=== PATIENT | male | born 1985 | race Hispanic/Latino ===

== ENCOUNTER 2019-07-19 20:58 | Emergency (ER) | payer SELFPAY ==
--- NOTE | 2019-07-19 21:30 | RAD ---
PORTABLE CHEST: 07/19/19 HISTORY: High blood pressure. Palpitations. Lung chapman are clear. Heart and mediastinum appear normal. Vasculature normal. IMPRESSION: Negative portable chest. POS: [facility]
[2019-07-19 21:34] LABS: #Basophils 0.1 thou/uL (0.0-0.2); #Eosinphils 0.1 thou/uL (0.0-0.7); #Lymphocytes 2.1 thou/uL (1.20-3.40); #Monocytes 0.5 thou/uL (0.11-0.59); %Basophils 1.9 % (0.0-1.0); %Eosinophils 0.9 % (0.0-10.0); %Lymphocytes 31.2 % (21.0-51.0); %Monocytes 7.4 % (0.0-10.0); %Neutrophils 58.7 % (42.0-75.0); Mean Corpuscular HGB CONC 35.7 g/dL (32.0-36.0); Mean Corpuscular Hemoglobin 33.3 pg (27.0-31.0); Mean Corpuscular Volume 93.3 fL (78.0-98.0); Mean Platelet Volume 7.1 fL (7.4-10.4); Platelet Count 321 thou/uL (130-400); RBC Distribution Width 11.1 % (11.5-14.5); Red Blood Cell (RBC) Count 5.11 mill/uL (4.70-6.10); White Blood Cell (WBC) Count 6.9 thou/uL (4.8-10.8)
[2019-07-19 21:57] LABS: ALT (SGPT) 44 U/L (8-55); AST (SGOT) 48 U/L (5-34); Albumin 4.4 g/dL (3.5-5.0); Alkaline Phosphatase 77 U/L (40-110); Anion Gap 18 mmol/L (10-20); BUN (Urea Nitrogen) 11 mg/dL (8.9-20.6); Bilirubin, Total 0.4 mg/dL (0.2-1.2); CK (CPK) 85 U/L (30-200); Calc. Creatinine Clearance 0 mL/min (70-130); Calcium 9.3 mg/dL (7.8-10.44); Carbon Dioxide 22 mmol/L (22-29); Chloride 103 mmol/L (98-107); Estimated GFR-MDRD Greater than 90; Globulin 3.6 g/dL (2.4-3.5); Glucose 143 mg/dL (70-105); Potassium 3.6 mmol/L (3.5-5.1); Sodium 139 mmol/L (136-145)
--- NOTE | 2019-07-19 22:23 | CT ---
CT HEAD WITHOUT CONTRAST: 07/19/19 INDICATION: Numbness right face. FINDINGS: Ventricles have normal size and position. No mass or hemorrhage. No evidence of infarct or edema. IMPRESSION: No acute findings. POS: [facility]
[2019-07-19] MEDS ORDERED: Aspirin 325 MG TAB ONE (22:29)
[2019-07-19 23:08] LABS: Medtox Reader # READER 4
[2019-07-19 23:09] LABS: Amphetamine Not Detected (NotDetected); Barbiturates Screen Not Detected (NotDetected); Benzodiazepine Screen Not Detected (NotDetected); Cocaine Metabolite Screen Detected (NotDetected); Medtox Control Line Valid? VALID (VALID); Methadone Not Detected (NotDetected); Methamphetamine Not Detected (NotDetected); Opiate Screen Not Detected (NotDetected); Oxycodone Screen Not Detected (NotDetected); Phencyclidine (PCP) Not Detected (NotDetected); THC/Cannabinoid Screen Not Detected (NotDetected); Tricyclic Screen Not Detected (NotDetected)
== END 2019-07-19 23:13 | disposition home or self-care (01) ==
LOC: ERS 20:58
DX: R00.2 Palpitations (principal); R20.2 Paresthesia of skin; Z87.01 Personal history of pneumonia (recurrent)
CPT/HCPCS: 70450; 71045; 80053; 80306; 82550; 84484; 85025; 93005; 96360

== ENCOUNTER 2020-06-30 21:29 | Inpatient (IN) | payer SELFPAY ==
[2020-06-30] MEDS ORDERED: Lorazepam 2 MG/ML VIAL ONE (23:26)
[2020-06-30] MEDS ORDERED: Diazepam 5 MG TAB ONE (23:57)
[2020-06-30] MEDS ORDERED: Ondansetron PF 4 MG/2 ML Vial ONE (23:59)
[2020-06-30] MEDS ORDERED: Multivitamins, Adult 10 ML, Thiamine HCl 100 MG, Folic Acid 1 MG in Dextrose 5 %-0.45 %... IV SCH (23:59)
[2020-07-01 02:19] LABS: ALT (SGPT) 151 U/L (8-55); AST (SGOT) 164 U/L (5-34); Albumin 3.8 g/dL (3.5-5.0); Alkaline Phosphatase 69 U/L (40-110); Anion Gap 16 mmol/L (10-20); BUN (Urea Nitrogen) 5 mg/dL (8.9-20.6); Bilirubin, Total 0.5 mg/dL (0.2-1.2); Calc. Creatinine Clearance 0 mL/min (70-130); Calcium 8.1 mg/dL (7.8-10.44); Carbon Dioxide 21 mmol/L (22-29); Chloride 103 mmol/L (98-107); Globulin 3.1 g/dL (2.4-3.5); Glucose 138 mg/dL (70-105); Lipase 308 U/L (8-78); Potassium 3.4 mmol/L (3.5-5.1); Protein, Total 6.9 g/dL (6.0-8.3); Sodium 137 mmol/L (136-145)
[2020-07-01 02:25] LABS: #Basophils 0.1 thou/uL (0.0-0.2); #Lymphocytes 0.8 thou/uL (1.20-3.40); #Monocytes 0.4 thou/uL (0.11-0.59); #Neutrophils 2.9 thou/uL (1.40-6.50); %Basophils 2.8 % (0.0-1.0); %Eosinophils 1.1 % (0.0-10.0); %Lymphocytes 19.4 % (21.0-51.0); %Monocytes 9.2 % (0.0-10.0); %Neutrophils 67.5 % (42.0-75.0); Hemoglobin 12.6 g/dL (14.0-18.0); Mean Corpuscular Hemoglobin 34.9 pg (27.0-31.0); Mean Corpuscular Volume 96.9 fL (78.0-98.0); Mean Platelet Volume 7.6 fL (7.4-10.4); Platelet Count 141 thou/uL (130-400); RBC Distribution Width 10.7 % (11.5-14.5); White Blood Cell (WBC) Count 4.3 thou/uL (4.8-10.8)
[2020-07-01 03:27] LABS: Bacteria/HPF None Seen HPF (None Seen); Bilirubin Negative (Negative); Blood, Urine 2+ (Negative); Clarity Clear (Clear); Glucose, Urine (Dipstick) Normal (Negative); Ketone, Urine Negative (Negative); Leukocyte Negative Leu/uL (Negative); Nitrite Negative (Negative); Protein, Urine (Dipstick) Negative (Neg-Trace); RBC/HPF 0-3 HPF (0-3); Specific Gravity, Urine 1.013 (1.002-1.036); Squamous Epithelial None Seen HPF (0-3); Urobilinogen Normal mg/dL (Less than 2); WBC/HPF 0-3 HPF (0-3); pH, Urine 5.5 (5.0-9.0)
[2020-07-01 03:37] LABS: Amphetamine Not Detected (NotDetected); Benzodiazepine Screen Detected (NotDetected); Cocaine Metabolite Screen Not Detected (NotDetected); Medtox Reader # READER 1; Methamphetamine Not Detected (NotDetected); Opiate Screen Not Detected (NotDetected); Phencyclidine (PCP) Not Detected (NotDetected); THC/Cannabinoid Screen Not Detected (NotDetected); Tricyclic Screen Not Detected (NotDetected)
[2020-07-01 03:38] LABS: Barbiturates Screen Not Detected (NotDetected); Medtox Control Line Valid? VALID (VALID); Methadone Not Detected (NotDetected); Oxycodone Screen Not Detected (NotDetected)
[2020-07-01 04:47] LABS: Lactic Acid 1.2 mmol/L (0.5-2.2)
[2020-07-01 06:14] VITALS: BMI 28.3
[2020-07-01] MEDS ORDERED: Diazepam 5 MG TAB PO PRN (06:52)
[2020-07-01] MEDS ORDERED: Thiamine HCl 200 MG/2 ML VIAL IM SCH (07:00)
[2020-07-01] MEDS: Diazepam 5 MG TAB PO SCH ×2 (07:10→07:20)
[2020-07-01] MEDS ORDERED: Potassium Chloride 20 MEQ TAB PO SCH (07:15)
[2020-07-01 07:27] LABS: #Basophils 0.1 thou/uL (0.0-0.2); #Eosinphils 0.1 thou/uL (0.0-0.7); #Lymphocytes 1.2 thou/uL (1.20-3.40); #Monocytes 0.5 thou/uL (0.11-0.59); #Neutrophils 3.5 thou/uL (1.40-6.50); %Basophils 1.9 % (0.0-1.0); %Eosinophils 1.8 % (0.0-10.0); %Monocytes 9.2 % (0.0-10.0); Hemoglobin 13.1 g/dL (14.0-18.0); Mean Corpuscular HGB CONC 35.2 g/dL (32.0-36.0); Mean Corpuscular Hemoglobin 34.1 pg (27.0-31.0); Mean Corpuscular Volume 96.7 fL (78.0-98.0); Mean Platelet Volume 7.4 fL (7.4-10.4); Platelet Count 150 thou/uL (130-400); RBC Distribution Width 10.7 % (11.5-14.5); Red Blood Cell (RBC) Count 3.86 mill/uL (4.70-6.10); White Blood Cell (WBC) Count 5.5 thou/uL (4.8-10.8)
[2020-07-01 07:43] LABS: ALT (SGPT) 144 U/L (8-55); AST (SGOT) 126 U/L (5-34); Alkaline Phosphatase 65 U/L (40-110); Anion Gap 12 mmol/L (10-20); BUN (Urea Nitrogen) 4 mg/dL (8.9-20.6); Bilirubin, Direct 0.4 mg/dL (0.1-0.3); Bilirubin, Total 0.8 mg/dL (0.2-1.2); Calc. Creatinine Clearance 155 mL/min (70-130); Calcium 8.8 mg/dL (7.8-10.44); Carbon Dioxide 26 mmol/L (22-29); Chloride 103 mmol/L (98-107); Globulin 3.3 g/dL (2.4-3.5); Glucose 73 mg/dL (70-105); Potassium 3.2 mmol/L (3.5-5.1); Protein, Total 7.3 g/dL (6.0-8.3); Sodium 138 mmol/L (136-145)
[2020-07-01] MEDS ORDERED: cloNIDine 0.1 MG TAB PO PRN (07:59)
[2020-07-01 08:01] LABS: Syphilis Antibody Nonreactive (Nonreactive); Syphilis Antibody Index 0.03 S/CO (<1.00 Non-Reactive)
[2020-07-01] MEDS ORDERED: Calcium Carbonate 500 MG ChewTAB PO PRN (08:01)
[2020-07-01] MEDS ORDERED: Senokot S 8.6-50 MG TAB PO PRN ×2 (08:01→08:03)
[2020-07-01] MEDS ORDERED: Ondansetron ODT 4 MG TAB PO PRN (08:01)
[2020-07-01] MEDS ORDERED: Lorazepam 1 MG TAB PO PRN (08:01)
[2020-07-01] MEDS ORDERED: Ondansetron PF 4 MG/2 ML Vial IVP PRN (08:01)
[2020-07-01] MEDS ORDERED: Sodium Chloride 0.9% (PF) 10 ML VIAL FS PRN (08:15)
--- NOTE | 2020-07-01 08:25 | RAD ---
EXAM: CHEST ONE VIEW HISTORY: [facility] protocol COMPARISON: 07/19/2019 FINDINGS: The cardiac silhouette and pulmonary vasculature are within normal limits. The lungs are clear. Chest is stable compared to prior exam. IMPRESSION: No acute cardiopulmonary process.
[2020-07-01 08:59] LABS: Magnesium 1.5 mg/dL (1.6-2.6); Phosphorus 3.4 mg/dL (2.3-4.7)
[2020-07-01] MEDS ORDERED: Metoprolol Tartrate 25 MG TAB PO SCH (09:00)
[2020-07-01] MEDS ORDERED: Famotidine 20 MG TAB PO SCH (09:00)
[2020-07-01] MEDS ORDERED: cloNIDine 0.1 MG TAB PO SCH (09:00)
[2020-07-01] MEDS ORDERED: Folic Acid 1 MG TAB PO SCH (09:00)
[2020-07-01] MEDS ORDERED: Famotidine/PF 20 mg/2ml Vial SLOW IVP SCH (09:00)
[2020-07-01] MEDS ORDERED: FLU VACC QS2020-21(6MOS UP)/PF 60 MCG/0.5 ML SYRINGE IM ONE (09:00)
[2020-07-01] MEDS ORDERED: Magnesium Sulfate 2 GM in Sodium Chloride 0.9% 100 ML IVPB SCH (09:15)
[2020-07-01] MEDS: Folic Acid 1 MG TAB PO SCH (09:26)
[2020-07-01] MEDS: D5 1/2 NS w/20 mEq KCL 1,000 ML IV SCH ×3 (09:26→19:51)
[2020-07-01] MEDS: Multivitamin W/ Minerals 1 TAB PO SCH (09:27)
[2020-07-01] MEDS: Heparin 5,000 UNITS/ML VIAL SC SCH ×3 (09:27→19:51)
[2020-07-01] MEDS: Pantoprazole 40 MG VIAL IVP SCH ×2 (09:28→19:52)
[2020-07-01] MEDS ORDERED: Magnesium 2 GM/50 ML 2 GM in Premix Bag 1 BAG IVPB SCH (09:45)
--- NOTE | 2020-07-01 11:35 | HP ---
PCP: None. CHIEF COMPLAINT: Altered mental status, hallucinating, abdominal pain. HISTORY OF PRESENT ILLNESS: Mr. Parkinson is a 35-year-old man, who was brought to the emergency room overnight for anxiety, hallucinations, mental status changes, tremors. He reports that he drinks at least two Tall Boy beers every night and then more on the weekends and he has done that since he was about 15. He reports that the last alcohol was either yesterday or the day before yesterday. He reports he has recently started a new job. He reports that he has blacked out over the past week, he feels very anxious. He reports that he has been recently from his , which has increased his drinking and has made his anxiety worse. When he was initially evaluated in the emergency room, he was tachycardic, pulse was 116. Blood pressure, temperature, PO2 sats were within normal ranges. His lab work in the emergency room showed a white blood cell count of 4.3, hemoglobin 12.6, hematocrit 34.8, and platelet count 141. Chemistry; sodium 137, potassium 3.4, chloride 103, carbon dioxide 21, BUN 5, creatinine 0.68, estimated GFR is greater than 90, glucose is 138, calcium is 8.1, bilirubin 0.5, AST is 164, ALT 151, alkaline phosphatase 69. His lipase was 308. Urine had a little trace blood. Toxicology positive for benzos. Syphilis was nonreactive. He was given fluids in the emergency room and some Zofran, a banana bag, Valium, Ativan, and then admitted for DTs and pancreatitis. On exam this morning, he is tremulous, but calm, reports that he feels a little bit anxious, but overall feels a little bit better. He is most anxious to go home by tomorrow as he started a new job and mohr not want to lose it. He is agreeable to be n.p.o. today with IV fluids and then potentially to start clear liquids tomorrow. REVIEW OF SYSTEMS: The patient reports intermittent abdominal pain, epigastric, but denies current pain. He reports blacking out a couple of times over this past week. Reports he has abused alcohol for the last 20 years. He denies any drug use. He reports that he is nauseated, but does not feel like vomiting. All other systems reviewed and are negative unless mentioned in the HPI or above. PAST MEDICAL HISTORY: COPD, hypertension. SURGICAL HISTORY: He has had hand surgery to his left hand, knee surgery, back surgery. PSYCHIATRIC HISTORY: Anxiety. SOCIAL HISTORY: He drinks everyday. He denies drug use. He has no smoking history. ALLERGIES: NONE. CURRENT HOME MEDICATIONS: None. PHYSICAL EXAMINATION: VITAL SIGNS: Temperature is 98.5, pulse is 105, respiratory rate is 20, PO2 sats are 99% on room air. CONSTITUTIONAL: The patient is alert, awake, and oriented. He is a little tremulous. Appears nontoxic. HEENT: Head is atraumatic and normocephalic. Eyes, pupils are equally round and reactive to light. Conjunctivae are normal. ENT; mouth exam is normal. Mucous membranes are moist. NECK: Normal range of motion. Trachea is midline. RESPIRATORY/CHEST: Breath sounds are clear. Chest expansion is equal. CARDIOVASCULAR: He is tachycardic. Heart sounds are normal S1 and S2. No murmurs. ABDOMEN: Nontender. Bowel sounds are heard. BACK: Normal range of motion. No tenderness. EXTREMITIES: Upper extremities; normal range of motion, radial pulses are normal. Lower extremities; normal range of motion, pedal pulses are normal. NEUROLOGIC: He is oriented to person, place, and time. He is tremulous. SKIN: Warm, dry, and normal in color. DIAGNOSTIC STUDIES: EKG in the emergency room shows normal conduction, tachycardic, otherwise normal EKG. PLAN AND ASSESSMENT: 1. Alcoholic pancreatitis, related to daily alcohol use. The patient will be kept n.p.o. We will add D5 half-normal with 20 of K as his potassium was a little low today. We will add some mag sulfate IV piggyback. His magnesium was 1.5. Added Protonix q.12 hours. 2. Alcohol use/abuse, withdrawals. Keep him on the protocol. We changed up his benzodiazepine to lorazepam 1 mg p.o. q.4 hours p.r.n. Also added some clonidine and beta fili to help with the tremors. Added thiamine and folic acid. Alcohol counseling cessation was given to the patient. 3. History of hypertension, but he does not remember which medications, so we will keep him on the clonidine p.r.n. for now and can adjust as needed. 4. We will recheck his lab values in the morning. 5. Most likely, start a clear liquid diet tomorrow, see how he tolerates. 6. Heparin for DVT prevention. Protonix for PUD prevention. 7. Discussed with Dr. Braun. 8. Hospital course dependent on clinical findings. Job ID: [id number]
[2020-07-01 12:26] LABS: SARS-CoV-2 PCR by NAA Not Detected (NotDetected)
[2020-07-02] MEDS: D5 1/2 NS w/20 mEq KCL 1,000 ML IV SCH ×3 (03:08→18:02)
[2020-07-02] MEDS ORDERED: Diazepam 5 MG TAB PO PRN (04:00)
[2020-07-02 06:21] LABS: #Basophils 0.1 thou/uL (0.0-0.2); #Eosinphils 0.1 thou/uL (0.0-0.7); #Lymphocytes 0.7 thou/uL (1.20-3.40); #Monocytes 0.5 thou/uL (0.11-0.59); #Neutrophils 3.2 thou/uL (1.40-6.50); %Basophils 1.8 % (0.0-1.0); %Eosinophils 2.5 % (0.0-10.0); %Lymphocytes 15.9 % (21.0-51.0); %Monocytes 10.2 % (0.0-10.0); %Neutrophils 69.6 % (42.0-75.0); Hemoglobin 14.2 g/dL (14.0-18.0); Mean Corpuscular HGB CONC 35.4 g/dL (32.0-36.0); Mean Corpuscular Hemoglobin 34.3 pg (27.0-31.0); Mean Corpuscular Volume 97.1 fL (78.0-98.0); Mean Platelet Volume 7.8 fL (7.4-10.4); Platelet Count 155 thou/uL (130-400); RBC Distribution Width 10.6 % (11.5-14.5); Red Blood Cell (RBC) Count 4.13 mill/uL (4.70-6.10); White Blood Cell (WBC) Count 4.6 thou/uL (4.8-10.8)
[2020-07-02 06:51] LABS: ALT (SGPT) 104 U/L (8-55); AST (SGOT) 68 U/L (5-34); Alkaline Phosphatase 61 U/L (40-110); Anion Gap 16 mmol/L (10-20); BUN (Urea Nitrogen) 4 mg/dL (8.9-20.6); Bilirubin, Total 0.9 mg/dL (0.2-1.2); Calc. Creatinine Clearance 153 mL/min (70-130); Calcium 9.1 mg/dL (7.8-10.44); Carbon Dioxide 22 mmol/L (22-29); Chloride 104 mmol/L (98-107); Globulin 3.5 g/dL (2.4-3.5); Glucose 121 mg/dL (70-105); Lipase 410 U/L (8-78); Magnesium 2.1 mg/dL (1.6-2.6); Phosphorus 3.4 mg/dL (2.3-4.7); Potassium 3.9 mmol/L (3.5-5.1); Protein, Total 7.5 g/dL (6.0-8.3); Sodium 138 mmol/L (136-145)
[2020-07-02] MEDS: Heparin 5,000 UNITS/ML VIAL SC SCH ×2 (08:43→14:27)
[2020-07-02] MEDS: Multivitamin W/ Minerals 1 TAB PO SCH (08:44)
[2020-07-02] MEDS: Folic Acid 1 MG TAB PO SCH (08:44)
[2020-07-02] MEDS: Pantoprazole 40 MG VIAL IVP SCH (08:44)
[2020-07-02] MEDS ORDERED: Magnesium Oxide 400 MG TAB PO SCH (09:00)
[2020-07-02] MEDS ORDERED: Thiamine 100 MG TAB PO SCH (09:00)
[2020-07-02 17:14] VITALS: TEMP 98.1
[2020-07-02 18:46] VITALS: BP 117/86
--- NOTE | 2020-07-02 20:31 | PDOC.DS.DS ---
Provider Date of Admission: 07/01/20 03:32 Date of Discharge: 07/02/20 Admitting Provider: Bob Malone MD Primary Care Physician: NO PCP PROVIDER Course Hospital Course: This is a 35-year-old male patient who is known to be an alcoholic presented to the ER complaining of abdominal pain, he also reported anxiety and blacking out couple times, his blood work in the ER showed elevated lipase. He was admitted with a diagnosis of alcoholic pancreatitis, he was started on magnesium, thiamine and folic acid. Over the past 24 hours he did very well and today when I saw him (translation services used) he reported that he does not have any abdominal pain that he is very hungry and wants to eat, although his lipase did increase today compared to yesterday clinically he was doing much better. I started him on a regular diet and he did very well, he requested to leave because he has a new job and he wanted to go back to his job. Since he did tolerate his diet, I did provide him with thiamine and magnesium and multivitamin. I advised him against alcohol consumption. He verbalized understanding and agreement. Resuscitation Status: 07/01/20 08:01 Resuscitation Status Routine Resuscitation Status: FULL: Full Resuscitation Lab Results: 07/02/20 06:02 07/02/20 06:02 Abnormal Lab Results - Last 48 hrs 07/01/20 01:50: Potassium 3.4 L, Carbon Dioxide 21 L, BUN 5 L, Creatinine 0.68 L, AST 164 H, ALT 151 H, Lipase 308 H 07/01/20 01:50: WBC 4.3 L, RBC 3.60 L, Hgb 12.6 L, Hct 34.8 L, MCH 34.9 H, RDW 10.7 L, Lymphocytes % 19.4 L, Basophils % 2.8 H, Lymphocytes # 0.8 L 07/01/20 01:50: Lactic Acid 2.4 H 07/01/20 02:46: U Benzodiazepines Scrn Detected H 07/01/20 02:46: Urine Blood 2+ A 07/01/20 07:02: Potassium 3.2 L, BUN 4 L, Creatinine 0.69 L, Direct Bilirubin 0.4 H, AST 126 H, ALT 144 H 07/01/20 07:02: RBC 3.86 L, Hgb 13.1 L, Hct 37.3 L, MCH 34.1 H, RDW 10.7 L, Basophils % 1.9 H 07/01/20 07:03: Magnesium 1.5 L 07/02/20 06:02: BUN 4 L, AST 68 H, ALT 104 H, Albumin/Globulin Ratio 1.1 L, Lipase 410 H 07/02/20 06:02: WBC 4.6 L, RBC 4.13 L, Hct 40.0 L, MCH 34.3 H, RDW 10.6 L, Lymphocytes % 15.9 L, Monocytes % 10.2 H, Basophils % 1.8 H, Lymphocytes # 0.7 L Vitals: Vital Signs (12 hours) Temp Pulse Resp BP BP Pulse Ox 07/02/20 17:13 98.1 F 86 16 127/86 100 07/02/20 16:00 117/86 07/02/20 12:00 98.6 F 72 16 118/77 118/77 98 Weight Weight 160 lb Physical Exam: The patient was seen and examined on the day of discharge. General Appearance: NAD Eye: PERRL ENT: normocephalic atraumatic Neck: supple, symmetric Respiratory: CTAB, no wheezes Cardiovascular: RRR, no murmur, no gallops Gastrointestinal: soft, non-tender, non-distended Extremities: no cyanosis, no clubbing, no edema Skin: normal turgor, no lesions Neurological: cranial nerve grossly intact Musculoskeletal: normal tone Problem Time Spent in discharge related activities (mins): 45 (1) Alcohol abuse Code(s): F10.10 - ALCOHOL ABUSE, UNCOMPLICATED Status: Acute (2) Pancreatitis Code(s): K85.90 - ACUTE PANCREATITIS WITHOUT NECROSIS OR INFECTION, UNSP Status: Acute Plan Prescriptions: Folic Acid [Folvite] 1 mg PO DAILY #30 tab Magnesium Oxide 400 mg PO DAILY #30 tab Multivitamin W/ Minerals [Theragran M] 1 tab PO DAILY #30 tab Thiamine 100 mg PO DAILY #30 tab Home Medications: Medication Instructions Recorded Confirmed Type Cyclobenzaprine [Flexeril] 10 mg PO DAILY PRN 07/01/20 07/01/20 History Folic Acid [Folvite] 1 mg PO DAILY #30 tab 07/02/20 Rx Magnesium Oxide 400 mg PO DAILY #30 tab 07/02/20 Rx Multivitamin W/ Minerals 1 tab PO DAILY #30 tab 07/02/20 Rx [Theragran M] Thiamine 100 mg PO DAILY #30 tab 07/02/20 Rx Allergies: No Known Drug Allergies Allergy (Verified 07/01/20 06:12) Discharge Instructions:: YOUR PRESCRIPTIONS WERE SENT TO: [facility] [address] [facility] [place] [address] Referrals: PROVIDER,NO PCP [Primary Care Provider] - Disposition: HOME Quality CORE MEASURES:: N/A
== END 2020-07-02 19:25 | disposition home or self-care (01) | DRG 439 ==
LOC: ERS 21:29 → T4-A 07-01 03:32
PROVIDERS: ADMIT Student in an Organized Health Care Education/Training Program; ATTEND Internal Medicine
PROC: HZ2ZZZZ Detoxification Services for Substance Abuse Treatment (ICD-10-PCS; principal; 2020-07-01)
DX: K85.20 Alcohol induced acute pancreatitis without necrosis or infection (principal); F10.239 Alcohol dependence with withdrawal, unspecified; R44.3 Hallucinations, unspecified; I10 Essential (primary) hypertension; F41.9 Anxiety disorder, unspecified; R41.0 Disorientation, unspecified; J44.9 Chronic obstructive pulmonary disease, unspecified; Z20.822 Contact with and (suspected) exposure to COVID-19; Z87.01 Personal history of pneumonia (recurrent); Z98.890 Other specified postprocedural states
CPT/HCPCS: 36415; 36416; 71045; 80053; 80306; 81003; 81015; 82248; 83605; 83690; 83735; 84100; 85025; 86780; 87635; 93005; 96365; 96366; 96375; C9113; J1644; J2060; J2405; J3411; J3475; J3480; J3490; J7042; U0003; U0005